=== PATIENT | female | born 1965 | race Caucasian/White ===

== ENCOUNTER 2021-11-08 13:18 | Outpatient (CLI) | payer MEDICAID, SELFPAY ==
[2021-11-08 11:23] LABS: Chloride* 102 mmol/L (96-114)
[2021-11-08 11:24] LABS: Potassium* 3.8 mmol/L (3.6-5.1); Sodium* 137 mmol/L (135-149)
[2021-11-08 11:26] LABS: Creatinine* 0.5 mg/dL (0.5-1.5); Estimated Glomerular Filt Rate 110 ml/min
[2021-11-08 11:27] LABS: Blood Urea Nitrogen* 20 mg/dL (7-30); Calcium* 9.2 mg/dL (8.4-10.6); Carbon Dioxide* 29 mmol/L (20-32); Glucose* 110 mg/dL (60-115)
== END 2021-11-08 13:19 | disposition home or self-care (01) ==
PROVIDERS: PCP Family Medicine; Visit Provider Family Medicine
DX: E11.9 Type 2 diabetes mellitus without complications (principal); E66.9 Obesity, unspecified; E78.5 Hyperlipidemia, unspecified
CPT/HCPCS: 80048

== ENCOUNTER 2022-02-06 15:30 | Outpatient (CLI) | payer MEDICAID, SELFPAY ==
--- OUTSIDE RECORDS SUMMARY | 2022-02-06 08:03 | XMS_ITS | Clinical Summary ---
:1965 Author Organization [employer] [facility] [place] [address] Care Team Providers Name Role Phone [facility] Unavailable Pcp, No Primary Care Provider Unavailable Allergies No known active allergies Medications Medication Sig Dispensed Refills Start Date End Date Status CrutchIndications: For home use. 1 Device 0 11/02/2015 Active Posterior tibial tendonitis, right, Plantar fasciitis of right foot Active Problems Not on file Immunizations Name Administration Dates Next Due Influenza, IIV3 (Age >=3 years) 03/11/2002 Pneumococcal Poly,23-Valent (Pneumovax) 07/22/2013 Tdap 05/26/2011 Social History Tobacco Use Types Packs/Day Years Used Date Never Smoker Tobacco Cessation: Counseling Given: Yes Alcohol Use Standard Drinks/Week Comments Not Asked 0 (1 standard drink = 0.6 oz pure alcoho l) occasionally Sex Assigned at Date Recorded Not on file Obstetrics History Last Filed Vital Signs Vital Sign Reading Time Taken Comments Blood Pressure 116/76 11/24/2015 3:58 PM CDT Pulse 97 11/24/2015 3:58 PM CDT Temperature 36.8 ??C (98.3 ??F) 11/24/2015 3:58 PM CDT Respiratory Rate - - Oxygen Saturation 98% 10/27/2015 3:57 PM CDT Inhaled Oxygen Concentration - - Weight 87.5 kg (192 lb 12.8 oz) 07/27/2007 10:48 AM CDT Height - - Body Mass Index - - Plan of Treatment Health Maintenance Due Date Last Done Comments COVID-19 vaccine series (#1) 1965 Depression screening for age 12+ 1977 BMI (ht and wt on same day) for 1983 age 18+ Hepatitis C screening for age 0205/31/1983 18-79 Colonoscopy through age 75 2010 Lipids for age 45-75 2010 Mammogram for age 45-75 2010 Zoster (shingles) series for age 0205/31/2015 50+ (1 of 2) Pap test for age 21-65 12/22/2019 12/21/2016, 12/21/2016, 10/29/2014, Additional history exists Tetanus booster 05/26/2021 05/26/2011 Influenza for age 50-64 12/15/2021 03/11/2002 Tdap Completed 05/26/2011 Results Not on filefrom Last 3 Months Insurance Payer Benefit Plan / Subscriber ID Effective Dates Phone Addre ss Type Group [place]ICA [place] MED[place] CHOICE [id number] 2015-Present [address] [address] [place] [address] Care Teams [employer] Consultant Relationship Specialty Start Date End Date Pcp, No PCP - General 10/26/15 . [facility] 07/27/[address] [place] [address]
[2022-02-06 08:20] LABS: Hemoglobin A1C* 9.1 % (0-5.6)
[2022-02-06 10:15] LABS: Microalbumin Urine 2 mg/dL
[2022-02-06 10:17] LABS: Creatinine Urine 138.2 mg/dL; Microalbumin Creatinine Ratio 10 mg/g (0-30)
[2022-02-06 10:26] LABS: Albumin* 4.4 g/dL (3.3-5.0); Chloride* 101 mmol/L (96-114); Potassium* 4.3 mmol/L (3.6-5.1); Sodium* 138 mmol/L (135-149)
[2022-02-06 10:28] LABS: Cholesterol* 156 mg/dL (90-199)
[2022-02-06 10:29] LABS: Alanine Aminotransferase* 28 U/L (4-35); Alkaline Phosphatase* 74 U/L (40-150); Aspartate Amino Transferase* 22 U/L (12-35); Bilirubin Total* 0.4 mg/dL (0.1-1.5); Blood Urea Nitrogen* 21 mg/dL (7-30); Calcium* 9.5 mg/dL (8.4-10.6); Carbon Dioxide* 27 mmol/L (20-32); Creatinine* 0.5 mg/dL (0.5-1.5); Estimated Glomerular Filt Rate 110 ml/min; Glucose* 171 mg/dL (60-115); HDL Cholesterol* 45 mg/dL (>=50); LDL Cholesterol Calculated 86 mg/dL (<100); Total Protein* 6.5 g/dL (6.0-8.3); Triglycerides* 123 mg/dL (40-149)
== END 2022-02-06 15:31 | disposition home or self-care (01) ==
PROVIDERS: PCP Family Medicine; Visit Provider Family Medicine
DX: E11.9 Type 2 diabetes mellitus without complications (principal); E78.5 Hyperlipidemia, unspecified; F32.A Depression, unspecified
CPT/HCPCS: 80053; 80061; 82043; 82570; 83036

== ENCOUNTER 2022-06-21 09:33 | Outpatient (CLI) | payer MEDICAID, SELFPAY | END 2022-06-21 09:34 | disposition home or self-care (01) | LOC: NFLDREF 06-22 14:11 | PROVIDERS: PCP Family Medicine; Visit Provider Family Medicine | DX: E11.9 Type 2 diabetes mellitus without complications (principal) | CPT/HCPCS: 80048 ==

== ENCOUNTER 2023-01-02 17:28 | Emergency (ER) | payer MEDICAID, SELFPAY ==
[2023-01-02 17:44] VITALS: BP 128/81; PULSE 93; RESP 16; TEMP 35.5; O2SAT 97; BMI 27.5
--- NOTE | 2023-01-02 19:45 | ED_ITS ---
HPI - General Adult General Date Seen: 01/02/23 Chief complaint: Insect Bite Stated complaint: Wasp sting, bad reaction Time Seen by Provider: 01/02/23 19:37 Source: patient Mode of arrival: ambulatory Limitations: no limitations History of Present Illness HPI narrative: Patient is a 57-year-old woman who presents for evaluation of a reaction to a wasp sting. She says she was stung on the underside of her upper left arm a few days ago, she took Benadryl once, she tried baking soda on it, but it has continued to be red and itchy. Today she was stung and same area again. She does not have an allergy to stings, she has not had any breathing problems swelling vomiting etcetera. She just has this itchiness and redness and it is hard for her to sleep. Related Data Home Medications Medication Instructions Recorded Confirmed aspirin 81 mg tablet,delayed 81 mg PO DAILY 02/10/22 02/10/22 release cinnamon bark PO 02/10/22 02/10/22 ginseng PO 02/10/22 02/10/22 multivitamin 1 tab PO QDAY 02/10/22 02/10/22 Previous Rx's Medication Instructions Recorded blood sugar diagnostic #100 ea 11/03/21 bupropion HCl 200 mg tablet,12 hr 200 mg PO BID #180 tabs 02/10/22 sustained-release epinephrine 0.3 mg/0.3 mL 0.3 ml IM .As Needed PRN 02/10/22 injection, auto-injector anaphylaxis #2 ea lancets 30 gauge (Easy Comfort #100 ea 02/10/22 Lancets) metformin 500 mg tablet,extended 1,000 mg (2 x 500 mg) PO BID #360 02/10/22 release 24 hr tabs glipizide 10 mg tablet, extended 10 mg PO QDAY #90 tabs 07/11/22 release 24 hr fluticasone propionate 50 2 spray intranasal DAILY #16 grams 07/12/22 mcg/actuation nasal spray,suspension atorvastatin 40 mg tablet 40 mg PO .Bedtime #90 tabs 07/13/22 empagliflozin 10 mg tablet 10 mg PO DAILY #90 tabs 07/13/22 Allergies Allergy/AdvReac Type Severity Reaction Status Date / Time pineapple Allergy Severe Anaphylaxis Verified 01/02/23 17:43 Review of Systems Status of ROS: Reports: 6 or more systems reviewed and unremarkable except as noted in History and below [facility] Medical History (Updated 02/10/22 @ 16:49 by Brigido Au MD) History of vaginal delivery History of hysterosalpingogram (2008) ?Z98.890 - Other specified postprocedural states (ICD-10) Gastroenteritis ?K52.9 - Noninfective gastroenteritis and colitis, unspecified (ICD-10) Exposure to influenza ?Z20.828 - Contact with and (suspected) exposure to other viral communicable diseases (ICD-10) Encounter for follow-up ?Z09 - Encounter for follow-up examination after completed treatment for conditions other than malignant neoplasm (ICD-10) Encounter for annual physical exam ?Z00.00 - Encounter for general adult medical examination without abnormal findings (ICD-10) Surgical History (Updated 10/25/21 @ 13:40 by Diego Escobedo) History of colposcopy with cervical biopsy ?Z98.890 - Other specified postprocedural states (ICD-10) Family History (Updated 09/29/21 @ 10:59 by Diego Escobedo) Other Depression Diabetes Social History (Updated 09/29/21 @ 10:59 by Diego Escobedo) Narrative: Adopted Smoking Status: Never smoker Exam Narrative: Exam Narrative: Vital signs reviewed In general, alert, well-appearing woman. Breathing easily. ENT: No facial swelling. Lungs: Clear Extremities: On the left upper extremity near the axilla she has the old sting new, she has some redness extending down a arm, no hives, no blisters, no other rash. No tenderness or warmth. Skin: Warm dry otherwise well perfused without rash or lesion. Const: Vital Signs, click to edit/add: Vital Signs - 24 hr 01/02/23 17:44 Temperature 96 F L Pulse Rate [Pulse Oximeter] 93 Respiratory Rate 16 Blood Pressure [Le ft Upper Arm] 128/81 Pulse Oximetry 97 Oxygen Delivery Me thod Room Air Documenting provider has reviewed patient's vital signs: yes Course Course ED Course: Discussed with her that I do think she needs to be on a more consistent antihistamine, either Benadryl 4 times a day or a nonsedating antihistamine such as Zyrtec once or twice a day. Will add some prednisone for few days to aid with local reaction. I do not see anything here to suggest an allergic reaction. Ibuprofen or ice as needed for discomfort or swelling. Advised that it may take several more days for this to completely resolve. Return for worsening. Vital Signs Vital signs: Initial Vital Signs Temperature 96 F L 01/02/23 17:44 Temperature Source Temporal Artery Scan 01/02/23 17:44 Pulse Rate 93 01/02/23 17:44 Respiratory Rate 16 01/02/23 17:44 Blood Pressure 128/81 01/02/23 17:44 Blood Pressure Mean 96 01/02/23 17:44 Blood Pressure Position Sitting 01/02/23 17:44 Pulse Oximetry 97 01/02/23 17:44 Oxygen Delivery Method Room Air 01/02/23 17:44 Vital Signs Temperature 96 F L 01/02/23 17:44 Pulse Rate 93 01/02/23 17:44 Respiratory Rate 16 01/02/23 17:44 Blood Pressure 128/81 01/02/23 17:44 Pulse Oximetry 97 01/02/23 17:44 Oxygen Delivery Method Room Air 01/02/23 17:44 Temperature 96 F L 01/02/23 17:44 Pulse Rate 93 01/02/23 17:44 Respiratory Rate 16 01/02/23 17:44 Blood Pressure 128/81 01/02/23 17:44 Pulse Oximetry 97 01/02/23 17:44 Oxygen Delivery Method Room Air 01/02/23 17:44 Discharge Plan Discharge Prescriptions: No Action aspirin 81 mg tablet,delayed release (DR/EC) 81 mg PO DAILY multivitamin Tablet 1 tab PO QDAY ginseng PO cinnamon bark PO bupropion HCl 200 mg tablet sustained-release 12 hr 200 mg PO BID Qty: 180 3RF metformin 500 mg tablet extended release 24 hr 1,000 mg PO BID Qty: 360 3RF (DME) lancets [Easy Comfort Lancets] 30 gauge misc See Rx Instructions .MEDSUPPLY Qty: 100 11RF Rx Instructions: bid or As directed epinephrine 0.3 mg/0.3 mL auto-injector 0.3 ml IM .As Needed PRN (Reason: anaphylaxis) Qty: 2 1RF (DME) blood sugar diagnostic Strip See Rx Instructions .Route Qty: 100 11RF Rx Instructions: bid or As directed glipizide 10 mg tablet extended release 24hr 10 mg PO QDAY Qty: 90 1RF fluticasone propionate 50 mcg/actuation spray,suspension 2 spray intranasal DAILY Qty: 16 3RF atorvastatin 40 mg tablet 40 mg PO .Bedtime Qty: 90 3RF empagliflozin 10 mg tablet 10 mg PO DAILY Qty: 90 1RF Follow Up/Referrals: Brigido Au MD [Primary Care Provider] -
[2023-01-02] MEDS: predniSONE 20 MG TABLET 60 MG PO (19:57)
[2023-01-02 20:33] VITALS: BP 115/74; PULSE 89; RESP 16; TEMP 36.7; O2SAT 97
[2023-01-02 20:53] VITALS: BP 115/74; PULSE 89; RESP 16; TEMP 36.7
== END 2023-01-02 20:53 | disposition home or self-care (01) ==
LOC: ED 20:42
PROVIDERS: Emergency Provider Emergency Medicine; PCP Family Medicine
DX: T63.461A Toxic effect of venom of wasps, accidental (unintentional), initial encounter (principal)
CPT/HCPCS: 99283; J7512

== ENCOUNTER 2023-02-07 07:50 | Outpatient (CLI) | payer MEDICAID, SELFPAY | END 2023-02-07 07:51 | disposition home or self-care (01) | LOC: NFLDREF 02-08 15:33 | PROVIDERS: PCP Family Medicine; Referring Provider Family Medicine; Visit Provider Family Medicine | DX: E11.9 Type 2 diabetes mellitus without complications (principal); E78.5 Hyperlipidemia, unspecified; E66.9 Obesity, unspecified | CPT/HCPCS: 80053; 80061; 82043; 82570 ==

== ENCOUNTER 2023-06-27 07:57 | Outpatient (CLI) | payer MEDICAID, SELFPAY ==
--- NOTE | 2023-06-27 08:15 | MM_ITS ---
Patient: TRENA REED Facility:?[facility] Patient ID:?[id number] Site Patient ID:?[id number] Site :?1965 Study:?XRay-Breast Bilateral 3D W/CAD-06/27/2023 8:55:25 AM Ordering Physician:Brigido Garcia Final Report: BILATERAL SCREENING MAMMOGRAM WITH COMPUTER-AIDED DETECTION AND TOMOSYNTHESIS TECHNIQUE: CC and MLO views were obtained. These mammographic images have been obtained using full-field digital technique. These mammographic images were interpreted with the benefit of computer-aided detection. Breast Tomosynthesis was used in this interpretation. COMPARISON FILM: 12/29/16, 09/28/14, 07/09/13. FINDINGS: There are scattered areas of fibroglandular density. IMPRESSION: There is no radiographic evidence for malignancy. ASSESSMENT: BI-RADS Category 1: Negative RECOMMENDATION: Routine screening mammogram in 1 year. A lay language report of this examination will be provided to the patient. Efra Romo M.D. Diagnostic Radiologist [email or web address] DSM/sp R& Transcribed: 3:57 p.m. SP/Dictated by: Efra Romo MD @ 06/27/2023 10:20:00 AM Signed by:?Efra Romo MD @06/27/2023 4:01:08 PM (Electronic Signature)
== END 2023-06-27 07:58 | disposition home or self-care (01) ==
LOC: MAMMO 07:58
PROVIDERS: PCP Family Medicine; Visit Provider Family Medicine
DX: Z12.31 Encounter for screening mammogram for malignant neoplasm of breast (principal)
CPT/HCPCS: 77063; 77067

== ENCOUNTER 2023-07-11 07:58 | Outpatient (CLI) | payer MEDICAID, SELFPAY | END 2023-07-11 07:59 | disposition home or self-care (01) | LOC: NFLDREF 07-13 10:21 | PROVIDERS: PCP Family Medicine; Referring Provider Family Medicine; Visit Provider Family Medicine | DX: E11.9 Type 2 diabetes mellitus without complications (principal) | CPT/HCPCS: 80048 ==

== ENCOUNTER 2024-01-09 07:49 | Outpatient (CLI) | payer OTHER, SELFPAY ==
--- OUTSIDE RECORDS SUMMARY | 2024-01-12 20:25 | XMS_ITS | Clinical Summary ---
Author Organization [employer] [facility] Address [place], [place] [address] Care Team Providers Care Auto Brake Mechanic Name Role Phone Clinic, [facility] Unavailable Pcp, No Primary Care Provider Unavailabl e Allergies No known active allergies Medications Medication Sig Dispensed Refills Start Date End Date Status CrutchIndications:Posteri or tibial tendonitis, right,Plantar fasciitis of right foot For home use. 1 Device 0 11/02/2015 Active Immunizations Name Administration Dates Next Due Influenza, IIV3 (Age >=3 years) 03/11/2002 Pneumococcal Poly,23-Valent (Pneumovax) 07/23/19 14 Tdap 05/26/2011 Social History Tobacco Use Types Packs/Day Years Used Date Smoking Tobacco: Never Tobacco Cessation:Counseling Given: Yes Alcohol Use Standard Drinks/Week Comments Not Asked 0 (1 standard drink = 0.6 oz pur e alcohol) occasionally Sex and Gender Information Value Date Recorded Sex Assigned at Not on file Gender Identity Not on file Sexual Orientation Not on file Obstetrics History Last Filed Vital Signs Vital Sign Reading Time Taken Comments Blood Pressure 116/76 11/24/2015 3:58 PM CDT Pulse 97 11/24/2015 3:58 PM CDT Temperature 36.8 ??C (98.3 ??F) 11/24/2015 3:58 PM CD T Respiratory Rate - - Oxygen Saturation 98% 10/27/2015 3:57 PM CDT Inhaled Oxygen Concentration - - Weight 87.5 kg (192 lb 12.8 oz) 008 10:48 AM CDT Height - - Body Mass Index - - Plan of Treatment Health Maintenance Due Date Last Done Comments Depression screening for age 12+ 1977 HIV for age 15-65 1980 BMI (ht and wt on same day) for age 18+ 1983 Hepatitis C screening for age 18-79 1983 Colonoscopy through age 75 2010 Lipids for age 45-75 2010 Mammogram for age 45-75 2010 Zoster (shingles) series for age 50+ (1 of 2) 2015 Tetanus booster 05/26/2021 05/26/2011 COVID-19 vaccine series (24 season) 2023 Influenza for age 50-64 12/16/2023 03/11/2002 Pap test for age 21-65 02/10/2025 , 02/10/2022, 12/21/2016, Additional history exists Tdap Completed 05/26/2011 Pneumococcal series for age 6-64 Aged Out 07/22/2013 No longer eligible based on patient's age to complete this topic Procedures Procedure Name Priority Date/Time Associated Diagnosis Comments HPV HIGH RISK Routine 02/10/2022 4:46 PM CDT from Last 3 Months or Most Recently Relevant to Health Maintenance Results * HPV HIGH RISK (02/10/2022 4:46 PM CDT) TYPE 16 Negative Negative 02/15/2022 5:00 PM CDT [facility] TYPE 18 Negative Negative 02/15/2022 5:00 PM CDT [facility] OTHER HIGH RISK TYPES Negative Negative 02/15/2022 5:00 PM CD[facility] Other (Cervical/Vagina l) 02/10/2022 4:46 PM CDT 02/14/2022 8:48 AM CDT [facility] LAB[facility]ATORY-[facility] LAB[facility]ATORY - 02/15/2022 5:00 PM CDT HPV types 16, 18, 31, 33, 35, 39, 45, 51, 52, 56, 58, 59, 66 and 68 DNA were undetectable or below the pre-set threshold. Methodology: [employer] 4800 HPV Test Brigido Au MD [facility]CROBIOLOGY [facility]AL LABORATORY [address] [place] [address], from Last 3 Months or Most Recently Relevant to Health Maintenance Care Teams Auto Brake Mechanic Relationship Specialty Start Date End Date Pcp, No . PCP - General 10/26/15 Clinic, [facility] [address] [place] [address] 07/27/07
== END 2024-01-09 07:50 | disposition home or self-care (01) ==
LOC: NFLDREF 01-12 20:23
PROVIDERS: PCP Family Medicine; Referring Provider Family Medicine; Visit Provider Family Medicine
DX: E11.9 Type 2 diabetes mellitus without complications (principal); E78.5 Hyperlipidemia, unspecified
CPT/HCPCS: 80053; 80061; 82043; 82570